=== PATIENT | male | born 1975 | race Caucasian/White ===

== ENCOUNTER 2023-05-03 14:55 | Outpatient (CLI) | payer OTHER, SELFPAY | END 2023-05-03 14:56 | disposition home or self-care (01) | PROVIDERS: PCP Nurse Practitioner Family; Visit Provider Nurse Practitioner Family | DX: R00.2 Palpitations (principal); R07.89 Other chest pain; Z13.0 Encounter for screening for diseases of the blood and blood-forming organs and certain disorders involving the immune mechanism | CPT/HCPCS: 80053; 84443; 85025 ==